=== PATIENT | female | born 1985 | race Hispanic/Latino ===

== ENCOUNTER 2017-09-13 07:12 | Emergency (ER) | payer OTHER ==
[2017-09-13 07:52] VITALS: BP 125/73
[2017-09-13 08:20] LABS: Bacteria,Urine 1+ /HPF (Negative); Bilirubin,Urine NEG (Negative); Blood,Urine SM (Negative); Color,Urine Straw (Yellow); Protein,Urine <15 mg/dL mg/dL (Negative); Urobilinogen,Urine < 2.0 mg/dL (<2.0); WBC,Urine < 1.0 /HPF (0.0-6.0)
[2017-09-13 08:26] LABS: HCG Qualitative,Urine Negative (Negative)
[2017-09-13 08:53] LABS: Basophils % (Auto) 0.4 % (0.0-1.8); Eosinophils # (Auto) 0.1 K/mm3 (0.0-0.4); Eosinophils % (Auto) 1.4 % (0.0-4.3); Hematocrit 45.3 % (30.3-42.9); Hemoglobin 15.5 gm/dl (10.1-14.3); Lymphocytes # (Auto) 2.5 K/mm3 (1.2-5.4); Lymphocytes % (Auto) 35.8 % (13.4-35.0); Mean Corpuscular HGB Conc 34 % (30-34); Mean Corpuscular Hemoglobin 32 pg (28-32); Mean Corpuscular Volume 94 fl (79-97); Monocytes # (Auto) 0.6 K/mm3 (0.0-0.8); Monocytes % (Auto) 9.2 % (0.0-7.3); Platelet Count 268 K/mm3 (140-440); Red Blood Count 4.81 M/mm3 (3.65-5.03); Red Cell Distribution Width 13.1 % (13.2-15.2)
[2017-09-13 09:13] LABS: Alanine Aminotransferase 17 units/L (7-56); Albumin 4.2 g/dL (3.9-5); BUN/Creatinine Ratio 20; Blood Urea Nitrogen 12 mg/dL (7-17); Calcium 9.2 mg/dL (8.4-10.2); Hemolysis Index 15
[2017-09-13] MEDS ORDERED: MOTRIN PO ONE (09:31)
[2017-09-13] MEDS ORDERED: PERCOCET 5/325 PO ONE (09:31)
--- NOTE | 2017-09-13 09:35 | Emergency Department Report ---
ED Female HPI - General Chief complaint: Abdominal Pain Stated complaint: KIDNEY STONES MAYBE ECTOPIC PRG Time Seen by Provider: 09/13/17 09:27 Source: patient Mode of arrival: Ambulatory Limitations: No Limitations - History of Present Illness Initial comments: Pramod is a pleasant healthy 32-year-old female who has had 3 days of left lower quadrant and left pelvic pain. Sharp cramping burning. She is concerned for possible ectopic or kidney stone. For one year she has had intermittent bleeding and pain related to a cooperative IUD. She denies discharge. She denies fever. She did have chills. No back pain. MD Complaint: pelvic pain -: Gradual, days(s) (3) Location: suprapubic, LLQ Radiation: non-radiating Severity: severe Quality: cramping, sharp, burning Consistency: constant Improves with: none Worsens with: none Are you Now?: No Associated Symptoms: other (chills). denies: vaginal discharge, vaginal bleeding, abdominal pain, nausea/vomiting, headaches, loss of appetite, dysuria , hematuria, rash - Related Data Previous Rx's Medication Instructions Recorded Last Taken Type Ibuprofen 800 mg PO QID PRN #20 tablet 09/13/17 Unknown Rx oxyCODONE /ACETAMINOPHEN [Percocet 1 tab PO Q6HR PRN #10 tablet 09/13/17 Unknown Rx 5/325] Allergies Allergy/AdvReac Type Severity Reaction Status Date / Time No Known Allergies Allergy Unverified 09/13/17 07:49 ED Review of Systems ROS: Stated complaint: KIDNEY STONES MAYBE ECTOPIC PRG Other details as noted in HPI Comment: All other systems reviewed and negative Constitutional: denies: fever, malaise Respiratory: denies: cough ED Past Medical Hx - Past Medical History Previous Medical History?: No - Surgical History Past Surgical History?: No - Social History Smoking Status: Never Smoker Substance Use Type: Alcohol - Medications Home Medications: Home Medications Medication Instructions Recorded Confirmed Last Taken Type Ibuprofen 800 mg PO QID PRN #20 tablet 09/13/17 Unknown Rx oxyCODONE /ACETAMINOPHEN [Percocet 1 tab PO Q6HR PRN #10 tablet 09/13/17 Unknown Rx 5/325] ED Physical Exam - General Limitations: No Limitations General appearance: alert, in no apparent distress - Head Head exam: Present: atraumatic, normocephalic - Eye Eye exam: Present: normal appearance - ENT ENT exam: Present: mucous membranes moist - Neck Neck exam: Present: normal inspection - Respiratory Respiratory exam: Present: normal lung sounds bilaterally. Absent: respiratory distress, wheezes, rales, rhonchi - Cardiovascular Cardiovascular Exam: Present: regular rate, normal rhythm, normal heart sounds. Absent: systolic murmur, diastolic murmur, rubs, gallop - GI/Abdominal GI/Abdominal exam: Present: soft, normal bowel sounds. Absent: distended, tenderness, guarding, rebound - Extremities Exam Extremities exam: Present: normal inspection - Back Exam Back exam: Present: normal inspection - Neurological Exam Neurological exam: Present: alert, oriented X3 - Psychiatric Psychiatric exam: Present: normal affect, normal mood - Skin Skin exam: Present: warm, dry, intact, normal color. Absent: rash ED Course Vital Signs 09/13/17 07:49 Temperature 97.7 F Pulse Rate 59 L Blood Pressure 125/73 O2 Sat by Pulse 100 Oximetry ED Medical Decision Making - Lab Data Result diagrams: 09/13/17 08:31 09/13/17 08:31 - Medical Decision Making Left lower quadrant left pelvic pain concerning for ovarian cysts. No indication of ectopic . No indication of kidney stone. Prescription for ibuprofen, provided. Referral to director cardiac provided. I reviewed labs which were within normal limits. Critical care attestation.: If time is entered above; I have spent that time in minutes in the direct care of this critically ill patient, excluding procedure time. ED Disposition Clinical Impression: Ovarian cyst Disposition: - TO HOME OR SELFCARE Is pt being admited?: No Does the pt Need Aspirin: No Condition: Stable Instructions: Abdominal Pain (ED) Prescriptions: Ibuprofen 800 mg PO QID PRN #20 tablet PRN Reason: Pain oxyCODONE /ACETAMINOPHEN [Percocet 5/325] 1 tab PO Q6HR PRN #10 tablet PRN Reason: Pain Referrals: BETTY VOGT MD [Primary Care Provider] - 3-5 Days DYLAN GOMES MD [Staff Physician] - 3-5 Days Time of Disposition: 09:36
== END 2017-09-13 09:40 | disposition home or self-care (01) ==
LOC: ED 07:12
DX: N83.202 Unspecified ovarian cyst, left side (principal)
CPT/HCPCS: 36415; 80053; 81001; 81025; 85025; 99283